=== PATIENT | male | born 1950 | race Caucasian/White ===

== ENCOUNTER 2016-09-07 16:36 | Inpatient (IN) | payer OTHER ==
[~2016-09-07] VITALS: Ht 180.3 cm; Wt 88.4 kg
[~2016-09-07 16:36] MED LIST: DEPA500T3 PO; FOLI1 PO; LEVI20TA PO; PRAZ1 PO; TRAZ50TA4 PO
[2016-09-07 17:18] VITALS: BP 157/87; PULSE 56; RESP 16; TEMP 98.1; O2SAT 96
--- NOTE | 2016-09-07 17:23 | PD ---
HPI Chief Complaint: Suicide Ideation/Attempt Time Seen by Provider: 17:00 Travel History International Travel<30 days: No Contact w/Intl Traveler<30days: No Traveled to known affect area: No History of Present Illness HPI 66-year-old male with history of depression, alcohol dependence, sent [place] from the [place] under Chavez act for suicidal ideation. According to the Chavez act, the patient went to the clinic today and stated that he is suicidal. He denies any specific plan or owning a weapon. He does not give me a reason for why he feels this way. He denies doing anything to himself to harm himself today. He denies alcohol or illicit drug use. No physical complaints. PFSH Past Medical History Anxiety: Yes Depression: Yes (DX [place] 2009) Diminished Hearing: No Endocrine: No Genitourinary: No Immune Disorder: No Musculoskeletal: No Neurologic: No Psychiatric: Yes (Anxiety and depression) Reproductive: No Respiratory: No Past Surgical History Tonsillectomy: Yes Social History Alcohol Use: No Tobacco Use: No Substance Use: No Allergies-Medications (Allergen,Severity, Reaction): Coded Allergies: No Known Allergies (Unverified , 09/07/16) Reported Meds & Prescriptions Reported Meds & Active Scripts Active Review of Systems Except as stated in HPI: all other systems reviewed are Neg Physical Exam Narrative GENERAL: Well-developed, well-nourished, awake, alert, no apparent distress. SKIN: Focused skin assessment warm/dry. HEAD: Atraumatic. Normocephalic. EYES: Pupils equal and round. No scleral icterus. No injection or drainage. ENT: Mucous membranes pink and moist. NECK: Trachea midline. No JVD. CARDIOVASCULAR: Regular rate and rhythm. No murmur appreciated. RESPIRATORY: No accessory muscle use. Clear to auscultation. Breath sounds equal bilaterally. GASTROINTESTINAL: Abdomen soft, non-tender, nondistended. MUSCULOSKELETAL: No obvious deformities. No clubbing. No cyanosis. No edema. NEUROLOGICAL: Awake and alert. No obvious cranial nerve deficits. Motor grossly within normal limits. Normal speech. PSYCHIATRIC: Flat affect. Poor contact. Depressed mood. Data Data Last Documented VS Vital Signs Date Time Temp Pulse Resp B/P Pulse Ox O2 Delivery O2 Flow Rate FiO2 09/07/16 17:27 98.1 54 16 157/87 96 Room Air Orders Complete Blood Count With Diff (7/19/17 16:45) Comprehensive Metabolic Panel (09/07/16 16:45) Psych Screen (09/07/16 16:45) Drug Screen, Random Urine (09/07/16 16:45) Alcohol (Ethanol) (09/07/16 17:21) Salicylates (Aspirin) (09/07/16 17:21) Tylenol (Acetaminophen) (09/07/16 17:21) Labs Laboratory Tests Test 09/07/16 09/07/16 09/07/16 17:05 17:10 17:21 White Blood Count 7.2 TH/MM3 Red Blood Count 4.50 MIL/MM3 Hemoglobin 14.0 GM/DL Hematocrit 40.7 % Mean Corpuscular Volume 90.5 FL Mean Corpuscular Hemoglobin 31.1 PG Mean Corpuscular Hemoglobin 34.4 % Concent Red Cell Distribution Width 13.8 % Platelet Count 207 TH/MM3 Mean Platelet Volume 9.1 FL Neutrophils (%) (Auto) 73.9 % Lymphocytes (%) (Auto) 20.5 % Monocytes (%) (Auto) 4.2 % Eosinophils (%) (Auto) 0.6 % Basophils (%) (Auto) 0.8 % Neutrophils # (Auto) 5.3 TH/MM3 Lymphocytes # (Auto) 1.5 TH/MM3 Monocytes # (Auto) 0.3 TH/MM3 Eosinophils # (Auto) 0.0 TH/MM3 Basophils # (Auto) 0.1 TH/MM3 CBC Comment DIFF FINAL Differential Comment Sodium Level 141 MEQ/L Potassium Level 4.5 MEQ/L Chloride Level 104 MEQ/L Carbon Dioxide Level 30.9 MEQ/L Anion Gap 6 MEQ/L Blood Urea Nitrogen 6 MG/DL Creatinine 0.91 MG/DL Estimat Glomerular Filtration 84 ML/MIN Rate Random Glucose 89 MG/DL Calcium Level 8.6 MG/DL Total Bilirubin 1.2 MG/DL Aspartate Amino Transf 24 U/L (AST/SGOT) Alanine Aminotransferase 20 U/L (ALT/SGPT) Alkaline Phosphatase 64 U/L Total Protein 7.2 GM/DL Albumin 3.6 GM/DL Urine Opiates Screen NEG Urine Barbiturates Screen NEG Urine Amphetamines Screen NEG Urine Benzodiazepines Screen NEG Urine Cocaine Screen NEG Urine Cannabinoids Screen NEG Acetaminophen Level LESS THAN 2.0 MCG/ML Ethyl Alcohol Level LESS THAN 3 MG/DL MDM Medical Decision Making Medical Screen Exam Complete: Yes Emergency Medical Condition: Yes Medical Record Reviewed: Yes Differential Diagnosis Depression, suicidal ideation Narrative Course Vital signs reviewed. CBC is unremarkable. CMP is unremarkable. Urine drug screen is negative for all drugs tested. Alcohol level is negative. Tylenol level was negative. The patient is medically cleared for psychiatric evaluation and disposition by them. Diagnosis Primary Impression: Depression with suicidal ideation Ralf Whitman MD Sep 07, 2016 17:23
[2016-09-07 17:27] VITALS: BP 157/87; PULSE 54; RESP 16; TEMP 98.1; O2SAT 96
[2016-09-07 17:35] LABS: AUTOMATED NEUTROPHIL # 5.3 TH/MM3 (1.8-7.7); BASOPHIL # 0.1 TH/MM3 (0-0.2); BASOPHIL % 0.8 % (0.0-2.0); EOSINOPHIL % 0.6 % (0.0-4.0); HEMATOCRIT 40.7 % (39.0-51.0); HEMO FLAGS DIFF FINAL; LYMPH % 20.5 % (9.0-44.0); LYMPHOCYTE # 1.5 TH/MM3 (1.0-4.8); MEAN CELL VOLUME 90.5 FL (80.0-100.0); MEAN CORPUSCULAR HEMOGLOBIN 31.1 PG (27.0-34.0); MEAN CORPUSCULAR HGB CONC 34.4 % (32.0-36.0); MONO % 4.2 % (0.0-8.0); NEUT % 73.9 % (16.0-70.0); PLATELET COUNT 207 TH/MM3 (150-450); RED CELL DISTRIBUTION WIDTH 13.8 % (11.6-17.2); WHITE BLOOD COUNT 7.2 TH/MM3 (4.0-11.0)
[2016-09-07 17:40] LABS: AMPHETAMINE, URINE NEG (NEG); BARBITURATES, URINE NEG (NEG); COCAINE, URINE NEG (NEG)
[2016-09-07 17:55] LABS: ALT (GPT) 20 U/L (12-78)
[2016-09-07 17:57] LABS: ALKALINE PHOSPHATASE 64 U/L (45-117); TOTAL BILIRUBIN ADULT 1.2 MG/DL (0.2-1.0)
[2016-09-07 18:00] LABS: ANION GAP 6 MEQ/L (5-15); AST (GOT) 24 U/L (15-37); BICARBONATE 30.9 MEQ/L (21.0-32.0); BLOOD UREA NITROGEN 6 MG/DL (7-18); CHLORIDE 104 MEQ/L (98-107); GLOMERULAR FILTRATION RATE 84 ML/MIN (>89); POTASSIUM 4.5 MEQ/L (3.5-5.1); SODIUM (NA) 141 MEQ/L (136-145)
[2016-09-07 18:21] LABS: ACETAMINOPHEN LESS THAN 2.0 MCG/ML (10.0-30.0)
[2016-09-07 19:28] VITALS: BP 150/74; PULSE 60; RESP 16; O2SAT 98
[2016-09-07 21:57] VITALS: BP 153/93; PULSE 55; RESP 18; O2SAT 96
[2016-09-08 01:53] VITALS: BP 153/69; PULSE 51; RESP 18; TEMP 98.6; O2SAT 95
[2016-09-08 06:07] VITALS: BP 127/69; PULSE 56; RESP 17
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
[2016-09-08] MEDS ORDERED: ACETAMINOPHEN 325 MG TAB PO PRN (10:45)
[2016-09-08] MEDS ORDERED: MAGNESIUM HYDROXIDE SUSP 30 ML CUP PO PRN (10:45)
[2016-09-08] MEDS ORDERED: ALUMINUM/MAGNESIUM/SIMETH 30 ML CUP PO PRN (10:45)
[2016-09-08 13:47] VITALS: BP 137/84; PULSE 58; RESP 18; TEMP 98.6; O2SAT 93
[2016-09-08 18:00] VITALS: BP_SYST 135; BP_SYST 150; BP_DIAS 67; BP_DIAS 75; PULSE 69; PULSE 87; RESP 16; TEMP 97.7; TEMP 98.6; O2SAT 96; O2SAT 98
[2016-09-09 06:12] VITALS: BP 115/78; PULSE 53; RESP 17; TEMP 96.6; O2SAT 94
[2016-09-09 08:42] LABS: ANION GAP 3 MEQ/L (5-15); BICARBONATE 32.5 MEQ/L (21.0-32.0); BLOOD UREA NITROGEN 13 MG/DL (7-18); CHLORIDE 105 MEQ/L (98-107); GLOMERULAR FILTRATION RATE 87 ML/MIN (>89); POTASSIUM 4.2 MEQ/L (3.5-5.1); SODIUM (NA) 140 MEQ/L (136-145)
[2016-09-09 08:46] LABS: LDL CHOLESTEROL 68 MG/DL (0-99)
[2016-09-09] MEDS ORDERED: ALUMINUM/MAGNESIUM/SIMETH 30 ML CUP PO PRN (15:00)
[2016-09-09] MEDS ORDERED: MAGNESIUM HYDROXIDE SUSP 30 ML CUP PO PRN (15:00)
[2016-09-09] MEDS ORDERED: hydrOXYzine HCL 50 MG TAB PO PRN (15:00)
[2016-09-09] MEDS ORDERED: diphenhydrAMINE HCL 50 MG CAP PO PRN (15:00)
[2016-09-09] MEDS ORDERED: ACETAMINOPHEN 325 MG TAB PO PRN (15:00)
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
[2016-09-09 16:00] VITALS: BP 115/73; PULSE 55; RESP 16; TEMP 97.9; O2SAT 96
[2016-09-09 16:26] LABS: HEMOGLOBIN A1b 1.4 %; HEMOGLOBIN Ao 86.3 %; HEMOGLOBIN LA1C 1.8 %; HEMOGLOBIN P3 3.3 %
[2016-09-09] MEDS: MIRTAZAPINE 15 MG TAB PO SCH (21:18)
[2016-09-10 05:38] VITALS: BP 115/73; PULSE 58; RESP 16; TEMP 98; O2SAT 98
--- NOTE | 2016-09-10 15:22 | HHI.PYPN ---
Subjective Remarks This is a request for second opinion. Admission note was reviewed, case discussed with nursing, and patient evaluated. Patient remains very depressed with a flat affect. He is withdrawn with poor eye contact. He has no goals is feeling hopeless towards the future. He has suicidal ideation with plan to hang himself with the sheets her drown himself in the toilet. Patient interviewed with nursing nursing made aware. Patient denies auditory visual hallucinations. Compliant with medications Objective Alert: Yes [place]: Person (ox4) Mood: Depressed Affect: Flat Memory Intact: Comment (no impairment) Hallucinations: Other (deneis any) Delusions: No Delusion Type: Other Suicidal: Plan (hang himself with a sheet), Ideation (active) Homicidal: Ideation (deneis any) Insight/Judgment Poor Vitals/IOs Vital Signs Date Time Temp Pulse Resp B/P Pulse Ox O2 Delivery O2 Flow Rate FiO2 09/10/16 05:38 98.0 58 16 115/73 98 09/08/16 06:07 Room Air Assessment & Plan Problem List: (1) Alcohol dependence in remission ICD Code: F10.21 (2) Intermittent explosive disorder in adult ICD Code: F63.81 (3) Major depressive disorder, recurrent severe without psychotic features ICD Code: F33.2 Assessment & Plan I agree with first opinion to continue petition. Criteria include suicidal ideation. Patient was discussed with team and we will order a one-to-one Justification for Cont. Inpt. Patient would decompensate in a less restrictive setting Request HC Surrog/Guard Advoc?: No Abraham Arellano DO Sep 10, 2016 15:22
[2016-09-10 18:00] VITALS: BP 137/78; PULSE 65; RESP 16; TEMP 96.8; O2SAT 97
[2016-09-10] MEDS: MIRTAZAPINE 15 MG TAB PO SCH (21:07)
[2016-09-11 05:35] VITALS: BP 125/86; PULSE 61; RESP 18; TEMP 97.8; O2SAT 97
--- NOTE | 2016-09-11 12:24 | HHI.PYPN ---
Subjective Remarks Patient was seen and case discussed with nursing. Patient appears brighter and more interactive compared to yesterday. Doing well according to the one-to- one. He had a productive visit with a good friend. Today suicidal ideation "comes and goes." He has no plans or intent of harming himself on the unit. Met with the counselor to discuss his goals. Compliant with medications and tolerating it well. Eating and sleeping well Objective Alert: Yes Center: Person (ox4), Place Mood: Depressed Affect: Blunted Memory Intact: Comment (no impairment) Hallucinations: Other (deneis any) Delusions: No Delusion Type: Other Suicidal: Intent (denies), Plan (denies), Ideation (fleeting) Homicidal: Ideation (deneis any) Insight/Judgment Improving Vitals/IOs Vital Signs Date Time Temp Pulse Resp B/P Pulse Ox O2 Delivery O2 Flow Rate FiO2 09/11/16 05:35 97.8 61 18 125/86 97 09/08/16 06:07 Room Air Assessment & Plan Problem List: (1) Alcohol dependence in remission ICD Code: F10.21 (2) Intermittent explosive disorder in adult ICD Code: F63.81 (3) Major depressive disorder, recurrent severe without psychotic features ICD Code: F33.2 Assessment & Plan Patient continues to improve, consider DC of one-to-one tomorrow Justification for Cont. Inpt. Patient will decompensate in a less restrictive setting Request HC Surrog/Guard Advoc?: No Abraham Arellano DO Sep 11, 2016 12:24
[2016-09-11 18:00] VITALS: BP 146/89; PULSE 61; RESP 17; TEMP 98.8; O2SAT 97
[2016-09-11] MEDS: MIRTAZAPINE 15 MG TAB PO SCH (21:19)
[2016-09-12 05:31] VITALS: BP 117/69; PULSE 62; RESP 18; TEMP 97.8; O2SAT 96
--- NOTE | 2016-09-12 14:27 | HHI.PYPN ---
Subjective Remarks Patient seen in his room with nurse Marci, chart review, patient compliant medications. Tegretol level drawn this a.m. is 4.6. It appears patient had a good weekend. He now denies suicidality homicidality voices or visions.. He still has some complaints about wanting to get "understanding" about his life his childhood and his temper. I reinforced the fact that this is a long-term therapy basically by talk therapy. For now will increase his Tegretol to 100 mg a.m. 20 mg at bedtime consider discharge tomorrow he may follow-up for the [place] [facility] for medications and blood levels on the Tegretol Review of Systems Except as stated in HPI: all other systems reviewed are Neg Objective Alert: Yes [place]: Person (ox4), Place Mood: Depressed Affect: Blunted Memory Intact: Comment (no impairment) Hallucinations: Other (deneis any) Delusions: No Delusion Type: Other Suicidal: Intent (denies), Plan (denies), Ideation (fleeting) Homicidal: Ideation (deneis any) Insight/Judgment Poor Labs Test 09/12/16 09:46 Carbamazepine (Tegretol) Level 4.6 MCG/ML Vitals/IOs Vital Signs Date Time Temp Pulse Resp B/P Pulse Ox O2 Delivery O2 Flow Rate FiO2 09/12/16 05:31 97.8 62 18 117/69 96 Assessment & Plan Problem List: (1) Alcohol dependence in remission ICD Code: F10.21 (2) Intermittent explosive disorder in adult ICD Code: F63.81 (3) Major depressive disorder, recurrent severe without psychotic features ICD Code: F33.2 Assessment & Plan Estimated LOS: days patient's mood slowly improving, now denying suicidality, see medication adjustment above Justification for Cont. Inpt. At this time patient may decompensate if not placed in an appropriate level of care Discharge Planning To be determined Request HC Surrog/Guard Advoc?: No Dc Liu MD Sep 12, 2016 14:27
[2016-09-12 15:51] VITALS: BP 148/77; PULSE 58; RESP 18; TEMP 98.1; O2SAT 96
[2016-09-12 18:00] VITALS: BP 148/77; PULSE 58; RESP 18; TEMP 98.1; O2SAT 96
[2016-09-12] MEDS: MIRTAZAPINE 15 MG TAB PO SCH (21:42)
[2016-09-13 06:03] VITALS: BP 127/69; PULSE 50; RESP 16; TEMP 97.6; O2SAT 98
--- NOTE | 2016-09-13 16:04 | HHI.PYPN ---
Subjective Remarks Patient seen in his room with nurse Cameron, chart review, patient compliant medications. Patient not seen to late in the afternoon. Continues to isolate somewhat though he denies suicidality homicidality voices or visions. There appears to be still some mild anxiety. [facility] related to his perceived need to do what appears to some intense talk therapy. Recently he needs to discuss this with the staff at the [facility]. Patient be discharged tomorrow earlier in the day so that he may make it to the [facility] for further care Review of Systems Except as stated in HPI: all other systems reviewed are Neg Objective Alert: Yes [place]: Person (ox4), Place Mood: Depressed Affect: Blunted Memory Intact: Comment (no impairment) Hallucinations: Other (deneis any) Delusions: No Delusion Type: Other Suicidal: Intent (denies), Plan (denies), Ideation (fleeting) Homicidal: Ideation (deneis any) Insight/Judgment Poor Vitals/IOs Vital Signs Date Time Temp Pulse Resp B/P Pulse Ox O2 Delivery O2 Flow Rate FiO2 09/13/16 06:03 97.6 50 16 127/69 98 Assessment & Plan Problem List: (1) Alcohol dependence in remission ICD Code: F10.21 (2) Intermittent explosive disorder in adult ICD Code: F63.81 (3) Major depressive disorder, recurrent severe without psychotic features ICD Code: F33.2 Assessment & Plan Estimated LOS: days patient depression continues to lift [place] somewhat of a neediness and him perhaps a passiveness. Patient to be discharged tomorrow follow-up [facility] Justification for Cont. Inpt. At this time patient may decompensate if not placed in an appropriate level of care Discharge Planning To be determined problem discharge tomorrow through [facility] Request HC Surrog/Guard Advoc?: No Dc Liu MD Sep 13, 2016 16:04
[2016-09-13 18:00] VITALS: BP 155/68; PULSE 86; RESP 18; TEMP 98.1; O2SAT 95
[2016-09-13] MEDS: MIRTAZAPINE 15 MG TAB PO SCH (22:01)
[2016-09-14 06:12] VITALS: BP 126/73; PULSE 64; RESP 18; TEMP 98.1; O2SAT 98
[2016-09-14] MEDS ORDERED: MIRTA15 PO (10:52)
[2016-09-14] MEDS ORDERED: CARB100C PO (10:52)
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
== END 2016-09-14 13:35 | disposition home or self-care (01) | DRG 883 ==
LOC: NEPD 16:36 → NEDA 09-08 10:59 → H260 09-08 13:25
PROVIDERS: ADMIT Psychiatry & Neurology Psychiatry; ATTEND Psychiatry & Neurology Psychiatry
DX: F63.81 Intermittent explosive disorder (principal); F33.2 Major depressive disorder, recurrent severe without psychotic features; R45.851 Suicidal ideations; F10.21 Alcohol dependence, in remission; Z62.810 Personal history of physical and sexual abuse in childhood; G47.00 Insomnia, unspecified; Z65.3 Problems related to other legal circumstances; F41.9 Anxiety disorder, unspecified
CPT/HCPCS: 80048; 80053; 80061; 80156; 80307; 83036; 85025; 99285; Q0163